=== PATIENT | male | born 1955 | race Caucasian/White ===

== ENCOUNTER → 2020-10-03 | Outpatient (REF) | payer MEDICARE, BC ==
[2020-10-04 12:28] LABS: BLOOD UREA NITROGEN 28 MG/DL (7-18); CALCIUM LEVEL 9.4 MG/DL (8.8-10.2); CARBON DIOXIDE LEVEL 30 MEQ/L (21-32); CHLORIDE LEVEL 106 MEQ/L (98-107); CREATININE FOR GFR 1.01 MG/DL (0.70-1.30); GLOMERULAR FILTRATION RATE > 60.0 (>49); GLUCOSE, FASTING 106 MG/DL (70-100); NT-PRO BNP 38 PG/ML (<125); POTASSIUM SERUM 4.9 MEQ/L (3.5-5.1); SODIUM LEVEL 139 MEQ/L (136-145)
== END ==
LOC: M SFHCCLAY 15:04
PROVIDERS: ATTEND Family Medicine
DX: I11.9 Hypertensive heart disease without heart failure (principal); R97.20 Elevated prostate specific antigen [PSA]; R60.0 Localized edema; Z12.5 Encounter for screening for malignant neoplasm of prostate
CPT/HCPCS: 80048; 83880; G0103

== ENCOUNTER → 2020-12-06 | Outpatient (REF) | payer MEDICARE, BC | LOC: M SMT 16:52 | PROVIDERS: ATTEND Nurse Practitioner Family | DX: N39.0 Urinary tract infection, site not specified (principal) | CPT/HCPCS: 87086; G0463 ==

== ENCOUNTER → 2021-01-15 | Outpatient (REF) | payer MEDICARE, BC ==
[2021-01-15 12:47] LABS: BLOOD UREA NITROGEN 21 MG/DL (7-18); CALCIUM LEVEL 9.1 MG/DL (8.8-10.2); CARBON DIOXIDE LEVEL 29 MEQ/L (21-32); CHLORIDE LEVEL 103 MEQ/L (98-107); CHOLESTEROL LEVEL 234 MG/DL (<200); CREATININE FOR GFR 0.98 MG/DL (0.70-1.30); GLOMERULAR FILTRATION RATE > 60.0 (>49); GLUCOSE, FASTING 74 MG/DL (70-100); HDL CHOLESTEROL 52 MG/DL (>40); LDL CHOLESTEROL 165 MG/DL (<100); NON-HDL-C 182 MG/DL; POTASSIUM SERUM 4.6 MEQ/L (3.5-5.1); SODIUM LEVEL 138 MEQ/L (136-145); TRIGLYCERIDES LEVEL 87 MG/DL (<150)
== END ==
LOC: M SFHCCLAY 09:08
PROVIDERS: ATTEND Family Medicine
DX: Z13.220 Encounter for screening for lipoid disorders (principal); I11.9 Hypertensive heart disease without heart failure

== ENCOUNTER → 2021-03-14 | Outpatient (REF) | payer MEDICARE, BC ==
[2021-03-16 00:07] LABS: PSA % FREE 14.1 % (.); PSA FREE 0.65 ng/mL; PSA TOTAL 4.6 ng/mL (0.0-4.0)
== END ==
LOC: M SFHCCLAY 08:17
PROVIDERS: ATTEND Family Medicine
DX: R97.20 Elevated prostate specific antigen [PSA] (principal)
CPT/HCPCS: 84154; 90682; 90732; G0008; G0009; G0463

== ENCOUNTER → 2021-08-05 | Outpatient (REF) | payer MEDICARE, BC ==
[2021-08-05 12:00] LABS: BLOOD UREA NITROGEN 21 MG/DL (7-18); CALCIUM LEVEL 9.7 MG/DL (8.8-10.2); CARBON DIOXIDE LEVEL 27 MEQ/L (21-32); CHLORIDE LEVEL 107 MEQ/L (98-107); CHOLESTEROL LEVEL 174 MG/DL (<200); CHOLESTEROL RISK RATIO 3.411 (<5); CREATININE FOR GFR 1.14 MG/DL (0.70-1.30); GLOMERULAR FILTRATION RATE > 60.0 (>49); GLUCOSE, FASTING 86 MG/DL (70-100); HDL CHOLESTEROL 51 MG/DL (>40); LDL CHOLESTEROL 97 MG/DL (<100); NON-HDL-C 123 MG/DL; POTASSIUM SERUM 4.9 MEQ/L (3.5-5.1); SODIUM LEVEL 139 MEQ/L (136-145); TRIGLYCERIDES LEVEL 130 MG/DL (<150)
== END ==
LOC: M SFHCCLAY 08:28
PROVIDERS: ATTEND Family Medicine
DX: R97.20 Elevated prostate specific antigen [PSA] (principal); I11.9 Hypertensive heart disease without heart failure; E78.5 Hyperlipidemia, unspecified

== ENCOUNTER → 2022-02-19 | Outpatient (REF) | payer MEDICARE, BC ==
[2022-02-19 12:26] LABS: BLOOD UREA NITROGEN 18 MG/DL (7-18); CALCIUM LEVEL 9.5 MG/DL (8.8-10.2); CARBON DIOXIDE LEVEL 26 MEQ/L (21-32); CHLORIDE LEVEL 106 MEQ/L (98-107); CREATININE FOR GFR 1.08 MG/DL (0.70-1.30); GLOMERULAR FILTRATION RATE > 60.0 (>49); GLUCOSE, FASTING 90 MG/DL (70-100); POTASSIUM SERUM 4.2 MEQ/L (3.5-5.1); SODIUM LEVEL 138 MEQ/L (136-145)
== END ==
LOC: M SFHCCLAY 09:05
PROVIDERS: ATTEND Nurse Practitioner Women's Health
DX: R97.20 Elevated prostate specific antigen [PSA] (principal); I11.9 Hypertensive heart disease without heart failure

== ENCOUNTER → 2022-07-14 | Outpatient (REF) | payer MEDICARE, BC ==
[2022-07-14 18:04] LABS: HEMATOCRIT 45.4 % (42.0-52.0); HEMOGLOBIN 15.1 g/dl (13.5-17.5); MEAN CORPUSCULAR HEMOGLOBIN 30.9 pg (27.0-33.0); MEAN CORPUSCULAR HGB CONC 33.3 g/dl (32.0-36.5); MEAN CORPUSCULAR VOLUME 92.8 fl (80.0-96.0); PLATELET COUNT, AUTOMATED 202 10^3/uL (150-450); RED BLOOD COUNT 4.89 10^6/uL (4.30-6.10); WHITE BLOOD COUNT 6.4 10^3/uL (4.0-10.0)
[2022-07-14 18:37] LABS: BLOOD UREA NITROGEN 19 MG/DL (9-23); CARBON DIOXIDE LEVEL 27 MMOL/L (20-31); CHLORIDE LEVEL 103 MMOL/L (98-107); CHOLESTEROL LEVEL 150 MG/DL (<200); CHOLESTEROL RISK RATIO 3.36 (<5); CREATININE FOR GFR 0.86 MG/DL (0.70-1.30); GLOMERULAR FILTRATION RATE > 60.0 (>49); GLUCOSE, FASTING 82 MG/DL (74-106); HDL CHOLESTEROL 44.6 MG/DL (>40); LDL CHOLESTEROL 87.8 MG/DL (<100); NON-HDL-C 105 MG/DL; POTASSIUM SERUM 4.5 MMOL/L (3.5-5.1); SODIUM LEVEL 138 MMOL/L (136-145); TRIGLYCERIDES LEVEL 88 MG/DL (<150)
[2022-07-16 16:09] LABS: PSA % FREE 14.3 % (.); PSA FREE 1.2 ng/mL; PSA TOTAL 8.4 ng/mL (0.0-4.0)
== END ==
LOC: M SFHCCLAY 09:57
PROVIDERS: ATTEND Nurse Practitioner Family
DX: R97.20 Elevated prostate specific antigen [PSA] (principal); E78.5 Hyperlipidemia, unspecified; I11.9 Hypertensive heart disease without heart failure

== ENCOUNTER → 2022-08-06 | Outpatient (CLI) | payer MEDICARE, BC | LOC: M CARPUL 11:07 | PROVIDERS: ATTEND Nurse Practitioner Family | DX: R00.2 Palpitations (principal) ==

== ENCOUNTER → 2022-09-05 | Outpatient (REF) | payer MEDICARE, BC | LOC: M SMT 12:54 | PROVIDERS: ATTEND Urology | DX: R97.20 Elevated prostate specific antigen [PSA] (principal) ==

== ENCOUNTER → 2022-09-10 | Outpatient (CLI) | payer MEDICARE, BC ==
[2022-09-10 17:41] LABS: BLOOD UREA NITROGEN 21 MG/DL (9-23); CALCIUM LEVEL 9.4 MG/DL (8.3-10.6); CARBON DIOXIDE LEVEL 28 MMOL/L (20-31); CHLORIDE LEVEL 104 MMOL/L (98-107); CREATININE FOR GFR 1.05 MG/DL (0.70-1.30); GLOMERULAR FILTRATION RATE > 60.0 (>49); GLUCOSE, FASTING 88 MG/DL (74-106); POTASSIUM SERUM 4.5 MMOL/L (3.5-5.1); SODIUM LEVEL 137 MMOL/L (136-145)
== END ==
LOC: M PLALAB 15:10
PROVIDERS: ATTEND Urology
DX: C61 Malignant neoplasm of prostate (principal)

== ENCOUNTER → 2022-11-06 | Outpatient (REF) | payer MEDICARE, BC ==
[2022-11-06 17:17] LABS: APPEARANCE, URINE HAZY (CLEAR); BACTERIA, URINE AUTO 1+ (NEGATIVE); BILIRUBIN, URINE AUTO NEGATIVE (NEGATIVE); BLOOD, URINE BLOOD 3+ (NEGATIVE); COLOR, URINE AMBER (YELLOW); GLUCOSE, URINE (UA) AUTO 1+ mg/dL (NEGATIVE); KETONE, URINE AUTO NEGATIVE (NEGATIVE); LEUKOCYTE ESTERASE, URINE AUTO TRACE (NEGATIVE); NITRITE, URINE AUTO NEGATIVE (NEGATIVE); PROTEIN, URINE AUTO 2+ mg/dL (NEGATIVE); RBC, URINE AUTO 55 /HPF (0-3); SQUAMOUS EPITHELIAL CELL UR AU 0 /HPF (0-6); UROBILINOGEN, URINE AUTO 0.2 mg/dL (0.0-2.0); WBC, URINE AUTO 23 /HPF (0-3)
== END ==
LOC: M LABDRAWC 16:48
DX: C61 Malignant neoplasm of prostate (principal)

== ENCOUNTER → 2022-11-28 | Outpatient (REF) | payer MEDICARE, BC | LOC: M SFHCCLAY 11:03 | PROVIDERS: ATTEND Physician Assistant | DX: N39.0 Urinary tract infection, site not specified (principal) ==

== ENCOUNTER → 2023-01-26 | Outpatient (REF) | payer MEDICARE, BC ==
[2023-01-26 13:11] LABS: CHOLESTEROL RISK RATIO 3.14 (<5); HDL CHOLESTEROL 56.2 MG/DL (>40); NON-HDL-C 120.8 MG/DL; PROSTATIC SPECIFIC AG MONITOR 0.04 NG/ML (< 4.00)
== END ==
LOC: M SFHCCLAY 08:39
PROVIDERS: ATTEND Nurse Practitioner Family
DX: E78.5 Hyperlipidemia, unspecified (principal); Z85.46 Personal history of malignant neoplasm of prostate

== ENCOUNTER → 2023-04-22 | Outpatient (REF) | payer MEDICARE, BC | LOC: M SFHCCLAY 09:06 | PROVIDERS: ATTEND Nurse Practitioner Family | DX: Z85.46 Personal history of malignant neoplasm of prostate (principal) ==

== ENCOUNTER → 2023-06-17 | Outpatient (REF) | payer MEDICARE, BC ==
[2023-06-17 18:48] LABS: BASO # 0.1 10^3/uL (0.0-0.2); BASO % 0.8 % (0.0-1.0); EOS # 0.1 10^3/uL (0.0-0.5); EOS % 1.8 % (0.0-3.0); HEMATOCRIT 49.5 % (42.0-52.0); HEMOGLOBIN 16.5 g/dl (13.5-17.5); LYMPH # 1.9 10^3/uL (1.5-5.0); LYMPH % 23.8 % (24.0-44.0); MEAN CORPUSCULAR HEMOGLOBIN 30.9 pg (27.0-33.0); MEAN CORPUSCULAR HGB CONC 33.3 g/dl (32.0-36.5); MEAN CORPUSCULAR VOLUME 92.7 fl (80.0-96.0); MONO # 0.7 10^3/uL (0.0-0.8); MONO % 8.7 % (2.0-8.0); NEUTROPHILS # 5.1 10^3/uL (1.5-8.5); NEUTROPHILS % 64.6 % (36.0-66.0); PLATELET COUNT, AUTOMATED 238 10^3/uL (150-450); RED BLOOD COUNT 5.34 10^6/uL (4.30-6.10); WHITE BLOOD COUNT 7.8 10^3/uL (4.0-10.0)
[2023-06-17 19:41] LABS: ALKALINE PHOSPHATASE 71 U/L (46-116); ALT/SGPT 36 U/L (7.0-40); AST/SGOT 23 U/L (<34); BILIRUBIN,TOTAL 0.5 MG/DL (0.3-1.2); BLOOD UREA NITROGEN 30 MG/DL (9-23); CALCIUM LEVEL 9.7 MG/DL (8.3-10.6); CARBON DIOXIDE LEVEL 28 MMOL/L (20-31); CHLORIDE LEVEL 106 MMOL/L (98-107); CHOLESTEROL LEVEL 211 MG/DL (<200); CHOLESTEROL RISK RATIO 3.73 (<5); CREATININE FOR GFR 1.17 MG/DL (0.70-1.30); GLOMERULAR FILTRATION RATE > 60.0 (>49); GLUCOSE, FASTING 93 MG/DL (74-106); HDL CHOLESTEROL 56.5 MG/DL (>40); LDL CHOLESTEROL 120.5 MG/DL (<100); NON-HDL-C 154.5 MG/DL; POTASSIUM SERUM 4.8 MMOL/L (3.5-5.1); SODIUM LEVEL 139 MMOL/L (136-145); TOTAL PROTEIN 6.9 G/DL (5.7-8.2); TRIGLYCERIDES LEVEL 170 MG/DL (<150)
[2023-06-17 21:14] LABS: HEMOGLOBIN A1c 5.1 % (4.0-6.0)
== END ==
LOC: M SFHCCLAY 14:28
PROVIDERS: ATTEND Nurse Practitioner Family
DX: Z01.818 Encounter for other preprocedural examination (principal); E78.5 Hyperlipidemia, unspecified; I10 Essential (primary) hypertension; Z79.899 Other long term (current) drug therapy

== ENCOUNTER → 2023-07-21 | Outpatient (REF) | payer MEDICARE, BC | LOC: M SFHCCLAY 14:16 | PROVIDERS: ATTEND Nurse Practitioner Family | DX: Z85.46 Personal history of malignant neoplasm of prostate (principal) ==

== ENCOUNTER → 2023-08-27 | Outpatient (REF) | payer MEDICARE, BC ==
[2023-08-27 12:41] LABS: ALBUMIN 3.8 G/DL (3.2-5.2); ALKALINE PHOSPHATASE 69 U/L (46-116); ALT/SGPT 45 U/L (7.0-40); AST/SGOT 24 U/L (<34); BILIRUBIN,TOTAL 0.5 MG/DL (0.3-1.2); BLOOD UREA NITROGEN 28 MG/DL (9-23); CALCIUM LEVEL 9.5 MG/DL (8.3-10.6); CARBON DIOXIDE LEVEL 28 MMOL/L (20-31); CHLORIDE LEVEL 107 MMOL/L (98-107); CHOLESTEROL LEVEL 167 MG/DL (<200); CHOLESTEROL RISK RATIO 3.11 (<5); CREATININE FOR GFR 1.06 MG/DL (0.70-1.30); GLOMERULAR FILTRATION RATE > 60.0 (>49); GLUCOSE, FASTING 90 MG/DL (74-106); HDL CHOLESTEROL 53.6 MG/DL (>40); LDL CHOLESTEROL 96.2 MG/DL (<100); NON-HDL-C 113.4 MG/DL; POTASSIUM SERUM 5.3 MMOL/L (3.5-5.1); SODIUM LEVEL 141 MMOL/L (136-145); TOTAL PROTEIN 6.6 G/DL (5.7-8.2); TRIGLYCERIDES LEVEL 86 MG/DL (<150)
== END ==
LOC: M SFHCCLAY 07:30
PROVIDERS: ATTEND Nurse Practitioner Family
DX: I10 Essential (primary) hypertension (principal); E78.5 Hyperlipidemia, unspecified

== ENCOUNTER → 2023-10-23 | Outpatient (REF) | payer MEDICARE, BC | LOC: M SFHCCLAY 12:36 | PROVIDERS: ATTEND Nurse Practitioner Family | DX: Z85.46 Personal history of malignant neoplasm of prostate (principal) ==

== ENCOUNTER → 2024-04-20 | Outpatient (REF) | payer MEDICARE, BC | LOC: M SFHCCLAY 10:35 | PROVIDERS: ATTEND Nurse Practitioner Family | DX: Z85.46 Personal history of malignant neoplasm of prostate (principal) ==

== ENCOUNTER → 2024-10-21 | Outpatient (REF) | payer MEDICARE, BC | LOC: M SFHCCLAY 13:35 | PROVIDERS: ATTEND Nurse Practitioner Family | DX: R97.20 Elevated prostate specific antigen [PSA] (principal) ==

== ENCOUNTER → 2025-05-25 | Outpatient (REF) | payer MEDICARE, BC ==
[2025-05-25 13:16] LABS: BASO # 0.0 10^3/uL (0.0-0.2); BASO % 0.5 % (0.0-1.0); EOS # 0.2 10^3/uL (0.0-0.5); EOS % 2.4 % (0.0-3.0); LYMPH # 1.9 10^3/uL (1.5-5.0); LYMPH % 24.6 % (24.0-44.0); MONO # 0.8 10^3/uL (0.0-0.8); MONO % 10.5 % (2.0-8.0); NEUTROPHILS # 4.7 10^3/uL (1.5-8.5); NEUTROPHILS % 61.7 % (36.0-66.0); PLATELET COUNT, AUTOMATED 250 10^3/uL (150-450)
[2025-05-25 13:18] LABS: ALT/SGPT 50.0 U/L (7.0-40); AST/SGOT 32.0 U/L (<34); CALCIUM LEVEL 9.6 MG/DL (8.3-10.6); CARBON DIOXIDE LEVEL 28.0 MMOL/L (20-31); CHLORIDE LEVEL 107.0 MMOL/L (98-107); CHOLESTEROL LEVEL 204.0 MG/DL (<200); CHOLESTEROL RISK RATIO 3.02 (<5); CREATININE FOR GFR 1.08 MG/DL (0.70-1.30); GLOMERULAR FILTRATION RATE 73.8 (>42); LDL CHOLESTEROL 120.6 MG/DL (<100); NON-HDL-C 136.6 MG/DL; POTASSIUM SERUM 5.1 MMOL/L (3.5-5.1); SODIUM LEVEL 142.0 MMOL/L (136-145); TRIGLYCERIDES LEVEL 80.0 MG/DL (<150)
[2025-05-25 14:15] LABS: ESTIMATED AVERAGE GLUCOSE 105.0 MG/DL (60-110)
== END ==
LOC: M SFHCCLAY 08:46
PROVIDERS: ATTEND Nurse Practitioner Family
DX: I10 Essential (primary) hypertension (principal); Z79.899 Other long term (current) drug therapy